=== PATIENT | female | born 1995 | race African-American/Black ===

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

== ENCOUNTER 2021-03-15 14:47 | Emergency (ER) | payer MEDICAID, OTHER ==
[~2021-03-15] VITALS: Ht 162.6 cm; Wt 88.3 kg
[2021-03-15 17:39] VITALS: BP 137/65
== END 2021-03-15 17:44 | disposition home or self-care (01) ==
LOC: EMS 14:50
DX: S50.812A Abrasion of left forearm, initial encounter (principal); L25.9 Unspecified contact dermatitis, unspecified cause; X58.XXXA Exposure to other specified factors, initial encounter; Y93.89 Activity, other specified; Y92.89 Other specified places as the place of occurrence of the external cause; Y99.8 Other external cause status
CPT/HCPCS: 99283; Z7502

== ENCOUNTER 2022-01-16 11:48 | Emergency (ER) | payer MEDICAID ==
[~2022-01-16] VITALS: Ht 162.6 cm; Wt 82.0 kg
[2022-01-16 11:51] VITALS: BP 104/67
[2022-01-16 12:25] LABS: COVID AG,FIA SOURCE NASAL SWAB
== END 2022-01-16 13:30 | disposition home or self-care (01) ==
LOC: EMS 11:48
DX: Z20.822 Contact with and (suspected) exposure to COVID-19 (principal)
CPT/HCPCS: 99283

== ENCOUNTER 2022-11-06 17:57 | Emergency (ER) | payer MEDICAID ==
[~2022-11-06] VITALS: Ht 162.6 cm; Wt 82.0 kg
[2022-11-06] MEDS ORDERED: KETOROLAC TROMETHAMINE 30 MG/ML VIAL IVP ONE (18:45)
[2022-11-06] MEDS ORDERED: ONDANSETRON HCL 4 MG/2 ML VIAL IVP ONE (18:45)
[2022-11-06 18:51] LABS: BASOPHILS % (AUTO) 0.2 % (0.0-2.0); EOSINOPHILS % (AUTO) 0 % (1.0-6.0); HEMATOCRIT 35.3 % (36-46); HEMOGLOBIN 11.7 g/dL (12.0-16.0); LYMPHOCYTES # (AUTO) 0.5 K/uL (1.0-4.8); MEAN CORPUSCULAR HEMOGLOBIN 30.9 pg (26.0-34.0); MEAN CORPUSCULAR HGB CONC 33.1 G/dL (31.0-37.0); MEAN CORPUSCULAR VOLUME 93 fL (80-100); MONOCYTES # (AUTO) 0.5 K/uL (0.1-1.0); MONOCYTES % (AUTO) 3.5 % (2.0-9.0); PLATELET COUNT (AUTO) 271 K/uL (150-450); RED BLOOD CELL COUNT(AUTO) 3.79 MIL/uL (4.00-5.20); RED CELL DISTRIBUTION WIDTH 13.7 % (11.5-14.5)
[2022-11-06 18:52] LABS: NEUTROPHILS % (AUTO) 92.3 % (40.0-70.0)
[2022-11-06 19:09] LABS: ANION GAP 7 mmol/L (8-16); CALCIUM, TOTAL 9.4 mg/dL (8.8-10.5); CARBON DIOXIDE 26 mmol/L (22-29); CHLORIDE 103 mmol/L (98-107); GLOMERULAR FILTR. RATE CALC > 60 mL/min (>60); GLUCOSE,RANDOM 96 mg/dL (70-110); POTASSIUM 3.9 mmol/L (3.5-5.1); SODIUM SERUM 136 mmol/L (136-145); UREA NITROGEN, BLOOD 9 mg/dL (7-18)
[2022-11-06 19:16] LABS: HCG,QUANTITATIVE < 1 mIU/mL (0-6)
[2022-11-06] MEDS ORDERED: IBUP-1492 PO (20:56)
[2022-11-06] MEDS ORDERED: ONDA-104 PO (20:56)
[2022-11-06 21:13] VITALS: BP 125/80
== END 2022-11-06 21:16 | disposition home or self-care (01) ==
LOC: EMS 18:08
DX: R10.2 Pelvic and perineal pain (principal); N94.6 Dysmenorrhea, unspecified; N83.209 Unspecified ovarian cyst, unspecified side
CPT/HCPCS: 99285; 74176; 96374; 96375; 80048; 84702; 85025; 36415; J1885; J2405; 51701